=== PATIENT | male | born 1940 | race Caucasian/White ===

== ENCOUNTER → 2020-05-06 | Outpatient (CLI) | payer MEDICARE, BC ==
--- NOTE | 2020-05-06 14:57 | XR ---
EXAMINATION TYPE: XR chest 2V DATE OF EXAM: 05/06/2020 COMPARISON: NONE HISTORY: Prostate cancer, C 61 TECHNIQUE: Frontal and lateral views of the chest are obtained. FINDINGS: There is no focal air space opacity, pleural effusion, or pneumothorax seen. The cardiac silhouette size is within normal limits. The osseous structures are intact. The aorta is dense. IMPRESSION: No acute cardiopulmonary process.
--- NOTE | 2020-05-06 15:37 | CT ---
EXAMINATION TYPE: CT abdomen wo/w con DATE OF EXAM: 05/06/2020 COMPARISON: None HISTORY: Prostate Cancer, Renal Mass CT DLP: 1617 mGycm Automated exposure control for dose reduction was used. TECHNIQUE: Helical acquisition of images was performed from the lung bases through the top of iliac crest to include entire abdomen. CONTRAST: Performed with Oral Contrast and without and with IV Contrast, patient injected with 100 ml mL of Iso delmer 300. FINDINGS: LUNG BASES: No significant abnormality is appreciated. LIVER/GB: Punctate low dense focus on axial image 13 measures only 3 mm in size in the left lobe and is indeterminate, gallbladder is normal. PANCREAS: No significant abnormality is seen. SPLEEN: No significant abnormality is seen. ADRENALS: No significant abnormality is seen. KIDNEYS: Right kidney shows a low dense focus measuring 16 mm at the midpole, likely simple cyst. No evident renal calculi or hydronephrosis.. BOWEL: No significant abnormality is seen. LYMPH NODES: No significant abnormality is appreciated. OSSEOUS STRUCTURES: Striated appearance of the lumbar vertebral bodies suggests underlying hemangiom as, degenerative disc disease present in the lower lumbar spine with vacuum disc phenomenon at interv ertebral levels. There is a mild spinal curvature.. FREE AIR: No Free Air visible ASCITES: None visible. RETROPERITONEAL ADENOPATHY: No Retroperitoneal Adenopathy visible. OTHER: IMPRESSION: NONSPECIFIC FINDINGS DESCRIBED ABOVE. LOW DENSE FOCUS WITHIN THE LIVER STATISTICALLY IS LIKELY REPRES ENTS CYST, CONSIDER FOLLOW-UP
--- NOTE | 2020-05-06 16:22 | NM ---
EXAMINATION TYPE: NM bone scan whole body DATE OF EXAM: 05/06/2020 COMPARISON: CT same date HISTORY: Prostate cancer Delayed whole-body scanning was performed following the injection of 22.6 mCi Tc 99m MDP. Images acq uired 3 hours post injection. FINDINGS: Uptake in the lower lumbar spine likely due to degenerative change. Soft tissue uptake is normal. Upt rosy within the hands, elbows, shoulders, ankles, and sternoclavicular joints, knees is likely degener ative. Uptake in the cervical spine is likely degenerative. No abnormal increased or decreased uptake to suggest metastatic disease. IMPRESSION: Degenerative changes. Metastatic disease is not evident
== END | disposition home or self-care (01) ==
LOC: RADNMMAIN 10:23
PROVIDERS: ATTEND Urology
DX: M19.90 Unspecified osteoarthritis, unspecified site (principal); C61 Malignant neoplasm of prostate; K76.9 Liver disease, unspecified
CPT/HCPCS: 82565; 84520; 71046; 74170; 36415; 78306; A9503; Q9967

== ENCOUNTER → 2020-10-10 | Outpatient (CLI) | payer MEDICARE, BC ==
--- NOTE | 2020-10-10 12:21 | XR ---
EXAMINATION TYPE: XR chest 2V DATE OF EXAM: 10/10/2020 COMPARISON: 05/06/2020 HISTORY: Shortness of breath TECHNIQUE: Frontal and lateral views of the chest are obtained. FINDINGS: Scattered senescent parenchymal changes noted. Hyperinflation compatible with COPD. No evidence for infiltrate. No evidence for atelectasis. Heart size is stable. Mediastinal structures are stable and grossly unremarkable. No evidence for hilar prominence. Degenerative changes dorsal spine. IMPRESSION: 1. No evidence for acute pulmonary disease.
[2020-10-10 12:53] LABS: Basophils # (A) 0.1 k/uL (0-0.2); Basophils % (A) 1 %; Eosinophils # (A) 0.3 k/uL (0-0.7); Eosinophils % (A) 5 %; HCT 36.5 % (39.0-53.0); HGB 12.4 gm/dL (13.0-17.5); Lymphocytes % (A) 18 %; MCH 32.5 pg (25.0-35.0); MCV 95.7 fL (80.0-100.0); Monocytes # (A) 0.3 k/uL (0-1.0); Monocytes % (A) 5 %; Neutrophils # (A) 3.9 k/uL (1.3-7.7); Neutrophils % (A) 70 %; Platelet Count 234 k/uL (150-450); RBC 3.81 m/uL (4.30-5.90); RDW 13.4 % (11.5-15.5); WBC 5.6 k/uL (3.8-10.6)
[2020-10-10 13:08] LABS: Potassium 4.2 mmol/L (3.5-5.1)
[2020-10-10 13:09] LABS: Calcium 9.1 mg/dL (8.4-10.2)
[2020-10-10 13:26] LABS: Appearance,Urine Clear (Clear); Bilirubin,Urine Negative (Negative); Blood,Urine Negative (Negative); Color,Urine Yellow; Glucose,Urine (UA) Negative (Negative); Ketones,Urine Negative (Negative); Leukocyte Esterase,Urine Negative (Negative); Nitrite,Urine Negative (Negative); Protein,Urine Negative (Negative); Specific Gravity,Urine 1.021 (1.001-1.035); Urobilinogen,Urine <2.0 mg/dL (<2.0)
== END | disposition home or self-care (01) ==
LOC: LABPAT 11:09
PROVIDERS: ATTEND Urology
DX: Z01.818 Encounter for other preprocedural examination (principal); C61 Malignant neoplasm of prostate; I10 Essential (primary) hypertension; R35.0 Frequency of micturition; R05 Cough; R06.02 Shortness of breath
CPT/HCPCS: 36415; 71046; 80048; 81003; 85025; 86850; 86900; 86901

== ENCOUNTER 2020-10-16 07:06 | Day surgery (SDC) | payer MEDICARE, BC ==
[2020-10-10 14:49] VITALS: BMI 20.7
--- NOTE | 2020-10-15 17:19 | P.HPIHPCON ---
History of Present Illness H&P Date: 10/15/20 Chief Complaint: Prostate cancer This is an 79-year-old male with history of [place] 8 prostate cancer. Of note he also has significant BPH despite medical therapy. Discussed with him treatment option for his prostate cancer. Discussed with him surgery and radiation in detail. He agreed to proceed with a robotic prostatectomy. Discussed the risk of surgery which includes but not limited to bleeding, infection, injury to nearby organ, urinary incontinence, erectile dysfunction, cancer recurrence. Also discussed with him risk from anesthesia. Discussed with him given his age she is at high risk of urinary incontinence, medical complication from surgery. Discussed with him potential of blood clots, heart attack, strokes, and even . Discussed with him that most likely he will have benefit of his urinary symptoms, but he might still have persistent sym ptoms even after surgery. Discussed with him given his previous abdominal surgeries if there is significant adhesions then surgery may not be feasible. He understood all the risk and agreed to proceed with robotic-assisted prostatectomy and pelvic lymph node dissection Consent for Procedure: I have explained the operation/procedure to the patient, including the risks, b enefits, side effects, alternative therapies (including not receiving the proposed treatment or service), the likelihood of the patient achieving his/her goals, and potential recuperation problems for the procedure/sedation/analgesia, as well as any blood products, if indicated. I also explained to the patient the risks, benefits and side effects of the alternatives, as well as the risks related to not receiving the proposed procedure, care, treatment, or services. Past Medical History Past Medical History: Cancer, Hypertension Additional Past Medical History / Comment(s): prostate CA, carotid stenosis, HX HEART MURMUR-RHEUMATIC FEVER 194,. . 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 IRENE. ING. HERNIA,irene cataracts Past Anesthesia/Blood Transfusion Reactions: Postoperative Nausea & Vomiting (PONV) Additional Past Anesthesia/Blood Transfusion Reaction / Comment(s): PONV. no problems with blood transfusion 1948 Smoking Status: Never smoker - Past Family History Mother Family Medical History: Cancer Additional Family Medical History / Comment(s): brain tumor Brother(s) Family Medical History: Cancer Medications and Allergies Home Medications Medication Instructions Recorded Confirmed Type Atenolol 50 mg PO HS 12/25/13 10/10/20 History Doxazosin Mesylate 8 mg PO HS 12/25/13 10/10/20 History Omeprazole [PriLOSEC] 20 mg PO QAM 12/25/13 10/10/20 History Aspirin 81 mg PO DAILY 10/10/20 10/10/20 History Atorvastatin [Lipitor] 40 mg PO DAILY 10/10/20 10/10/20 History Vit C/E/Zn/Coppr/Lutein/Zeaxan 1 each PO BID 10/10/20 10/10/20 History [Preservision Areds 2 Softgel] diphenhydrAMINE HCL [Benadryl] 25 mg PO BID 10/10/20 10/10/20 History Allergies Allergy/AdvReac Type Severity Reaction Status Date / Time No Known Allergies Allergy Verified 10/10/20 14:34 Surgical - Exam - General well developed, well nourished, no distress, no pain - Eyes PERRL, normal ocular movement - Respiratory normal expansion, normal respiratory effort Assessment and Plan Assessment: 79 year-old male with history of prostate cancer OR for Robotic prostatectomy and pelvic lymph node dissection
[~2020-10-16 07:06] MED LIST: HEPARIN SODIUM,PORCINE/PF 5,000 UNIT/0.5 ML SYRINGE SQ PRN; ONDANSETRON 4 MG/2 ML VIAL IVP ONE
[2020-10-16] MEDS ORDERED: LACTATED RINGERS 1,000 ML IV ONE ×6 (07:50→15:50)
[2020-10-16] MEDS ORDERED: LIDOCAINE 1% (10MG/ML) FOR IV START INTRADERMA ONE ×2 (08:00→08:14)
[2020-10-16] MEDS ORDERED: LIDOCAINE 1% INJ 10MG/ML (20 ML MDV) ONE (08:09)
[2020-10-16] MEDS ORDERED: ONDANSETRON 4 MG/2 ML VIAL IVP ONE (08:15)
[2020-10-16] MEDS: LACTATED RINGERS 1,000 ML IV SCH (08:17)
[2020-10-16] MEDS ORDERED: MIDAZOLAM 2 MG/2 ML VIAL IVP ONE (08:43)
[2020-10-16] MEDS ORDERED: ONDANSETRON 4 MG/2 ML VIAL IVP PRN (10:44)
[2020-10-16] MEDS ORDERED: HYDROcodone/APAP 5-325MG 1 EACH TAB PO PRN (10:44)
[2020-10-16] MEDS ORDERED: PHENYLEPHRINE-0.9% NACL SYG 1,000 MCG/10 ML SYRINGE ONE (11:14)
[2020-10-16] MEDS ORDERED: GLYCOPYRROLATE 0.2 MG/ML 2 ML VIAL ONE (11:14)
[2020-10-16] MEDS ORDERED: ROPIVACAINE 5 MG/ML 30 ML VIAL ONE (11:14)
[2020-10-16] MEDS ORDERED: SUCCINYLCHOLINE CHLORIDE 100 MG/5 ML SYR IV ONE (11:14)
[2020-10-16] MEDS ORDERED: ONDANSETRON 4 MG/2 ML VIAL ONE (11:14)
[2020-10-16] MEDS ORDERED: BUPIVACAIN-EPI 0.5%-1:200,000 30 ML VIAL SQ ONE (11:14)
[2020-10-16] MEDS ORDERED: MIDAZOLAM 2 MG/2 ML VIAL ONE (11:14)
[2020-10-16] MEDS ORDERED: fentaNYL (PF) 50 MCG/ML 2 ML AMP ONE (11:14)
[2020-10-16] MEDS ORDERED: PROPOFOL 10 MG/ML 20 ML VIAL IV ONE (11:14)
[2020-10-16] MEDS ORDERED: NEOSTIGMINE 1 MG/ML 10 ML VIAL ONE (11:14)
[2020-10-16] MEDS ORDERED: LIDOCAINE 1%-EPI 1:100,000 20 ML VIAL ONE (11:14)
[2020-10-16] MEDS ORDERED: ROCURONIUM 10 MG/ML (5 ML VIAL) IV ONE (11:14)
[2020-10-16] MEDS ORDERED: ePHEDrine SULFATE/0.9% NACL/PF 50 MG/5 ML SYRINGE IV ONE (11:14)
[2020-10-16] MEDS: HYDROmorphone 0.5 MG/0.5 ML SYRINGE IVP PRN ×4 (16:14→16:35)
[2020-10-16] MEDS ORDERED: KETOROLAC 15 MG/ML 1 ML VIAL IVP ONE (16:46)
[2020-10-16] MEDS ORDERED: HYDROmorphone 0.5 MG/0.5 ML SYRINGE IVP ONE ×2 (16:51→16:56)
[2020-10-16] MEDS: HEPARIN SODIUM,PORCINE/PF 5,000 UNIT/0.5 ML SYRINGE SQ SCH (18:12)
[2020-10-16] MEDS: D5-0.45% NACL WITH KCL 20MEQ/L 1,000 ML IV SCH (18:12)
--- NOTE | 2020-10-16 20:32 | P.ANPRN ---
Procedure Note - Anesthesia - Nerve Block Performed Bilateral Erector Spinae Single Time Out Performed: Yes Date of Procedure: 10/16/20 Procedure Start Time: 08:42 Procedure Stop Time: :52 Location of Patient: PreOp Indication: Acute Post-Operative Pain, Requested by Surgeon Sedation Type: Sedate with meaningful contact maintained Preparation: Sterile Prep Position: Prone Needle Types: Pajunk Needle Gauge: 21 Ultrasound used to visualize needle placement: Yes Ultrasound used to observe medication spread: Yes Blood Aspirated: No Pain Paresthesia on Injection Noted: No Resistance on Injection: Normal Image Stored and Saved: Yes Events: Uneventful and Well Tolerated (ropi .5% 15cc plus xylo 1% with epi 15cc bilaterally at l3)
[2020-10-16] MEDS ORDERED: atenoloL 50 MG TAB PO SCH (21:00)
--- NOTE | 2020-10-16 21:21 | P.OP ---
Date of Procedure: 10/16/20 Preoperative Diagnosis: Prostate cancer Postoperative Diagnosis: Same Procedure(s) Performed: Robotic-assisted laparoscopic radical prostatectomy, pelvic lymph node dissection Implants: none Anesthesia: GENI Surgeon: Robbie Khan Network Design Architect #1: Rosario Wong Estimated Blood Loss (ml): 100 Pathology: other (Prostate, bilateral seminal vesicles, bilateral pelvic lymph nodes) Condition: stable Disposition: PACU Indications for Procedure: This is an 79-year-old male with history of [place] 8 prostate cancer. Of note he also has significant BPH despite medical therapy. Discussed with him treatment option for his prostate cancer. Discussed with him surgery and radiation in detail. He agreed to proceed with a robotic prostatectomy. Discussed the risk of surgery which includes but not limited to bleeding, infection, injury to nearby organ, urinary incontinence, erectile dysfunction, cancer recurrence. Also discussed with him risk from anesthesia. Discussed with him given his age she is at high risk of urinary incontinence, medical complication from surgery. Discussed with him potential of blood clots, heart attack, strokes, and even . Discussed with him that most likely he will have benefit of his urinary symptoms, but he might still have persistent symptoms even after surgery. Discussed with him given his previous abdominal surgeries if there is significant adhesions then surgery may not be feasible. He understood all the risk and agreed to proceed with robotic-assisted prostatectomy and pelvic lymph node dissection Description of Procedure: After preoperative antibiotics were started, the patient was taken to the operating room. Anesthesia was induced and the patient was placed in supine position, with adequate padding of the pressure points, shoulders, back, legs and arms. He was then prepped and draped in the standard fashion. A critical pause was performed using two patient identifiers. A 16F blancas catheter was placed to gravity drainage. A pneumo-peritoneum was created with placement of a Veress needle to 20 mm Hg without complication, and a 8 Fr trocar was placed above the umbillicus. Under direct vision a 8mm robotic ports was placed lateral to each rectus slightly below the camera port. The left iliac fossa 8mm port was placed. The right office clerk assistant right iliac fossa 12mm port and right paramedian 5mm port were placed. After the patient was placed in the trendelenberg position, the robot was then docked to the 8mm robotic ports and then each robotic arm and tower was checked in relation to the patient's legs and hands to avoid inadvertent compression. The peritoneal cavity was inspected. adhesion taken down along the LLQ An inverted U-shaped incision began laterally to the left medial umbilical ligament and extended high across the midline to the right umbilical ligament. The limbs of the "U" extended to the level of the vasa on both sides. We next developed the preperitoneal space and the space of Retzius. of note patient had mesh along the right side, the incision was made medial to the mesh Cautery was used to dissected the bladder away from the prostate. Of note patient had thickened bladder wall After the anterior bladder neck was incised and the bladder entered the the posterior bladder neck was exposed and the ureteral orifces identified. The posterior bladder neck was then incised and dissected away from the prostate. The vas and the seminal vesicles were now exposed and dissected to their insertions into the prostate and were not spared. The left seminal vesicle was adherent. The posterior layer of the Denonvillier's fascia was incised to enter elizabeth the plane between prostate and perirectal fat. Each lateral pedicle was controlled with clips and cautery for hemostasis. No nerve sparing was performed. The puboprostatic ligament was incised where it inserted into the apex of the prostate and a plane between urethra and dorsal venous complex developed to expose the anterior urethral surface. The anterior wall of the urethra was transected with the cut setting a few millimeters distal to the apex of the prostate. The dorsal vein was ligated using 3-0 V lock bilateral obturator and external iliac lymph node packets were carefully dissected after careful visualization of the hypogastric artery and obturator nerve. There was careful attention paid to hemostasis with judicious use of cautery. The urethrovesical anastomosis was performed . the posterior denovillers was reapproximated using 3-0 V lock. A 6 and 6 inch 3-0 V-Lock suture was used to anastomose the urethra and bladder, starting at the 6:00 posterior position. Mucosa was secured in every stitch, to ensure a mucosa to mucosa anastomosis. The stitch was regularly cinched and the anastomosis tightened. Care was taken to not violate the ureteral orifices. The Lbancas catheter was advanced, the bladder filled, and the anastomosis was tested, as described above. Anastomsis was watertight at 150 mL The periumbilical fascia was closed with 1-0-PDS suture in figure of 8 fashion. All ports were closed with a subcuticular 4-0 monocryl and Dermabond. Sponge, instrument, and needle counts were correct at the end of the case x2. All specimens including prostate and lymph nodes were sent to pathology for diagnosis and will be available in a week. The patient tolerated the surgery well and without complication. He awoke without difficulty and was taken to the recovery room in stable condition
[2020-10-17] MEDS: HEPARIN SODIUM,PORCINE/PF 5,000 UNIT/0.5 ML SYRINGE SQ SCH ×2 (00:07→08:15)
[2020-10-17] MEDS: KETOROLAC 15 MG/ML 1 ML VIAL IVP SCH ×3 (00:08→12:47)
[2020-10-17] MEDS: D5-0.45% NACL WITH KCL 20MEQ/L 1,000 ML IV SCH ×2 (02:15→10:17)
[2020-10-17] MEDS: LACTATED RINGERS 1,000 ML IV SCH (05:24)
[2020-10-17 07:50] VITALS: BP 123/64; RESP 15; TEMP 98.2
[2020-10-17] MEDS ORDERED: ATORVASTATIN 40 MG TAB PO SCH (09:00)
[2020-10-17 10:57] VITALS: PULSE 62
--- NOTE | 2020-10-17 12:24 | P.CONS ---
History of Present Illness - Reason for Consult Consult date: 10/17/20 Medical management - History of Present Illness HISTORY OF PRESENT ILLNESS This is an 79-year-old male patient of Dr. Ordaz with past medical history of [place] 8 prostate cancer, benign prostatic hypertrophy, hypertension, hyperlipidemia, gastroesophageal reflux disease, carotid stenosis, skin cancer. Patient was seen at [facility] for possible options for prostate cancer. He declined radiation therapy and requested to undergo surgical intervention. Patient has been brought in under the care of Dr. Khan and yesterday underwent robotic-assisted laparoscopic radical prostatectomy, pelvic lymph node dissection. Patient has Wallis catheter in place. He states his pain is controlled. He does have some abdominal bloating. Patient has been afebrile, hemodynamically stable. He is anticipating discharge home later today. REVIEW OF SYSTEMS Constitutional: No fever, no chills, no night sweats. No weight change. No weakness, fatigue or lethargy. No daytime sleepiness. EENT: No headache. No blurred vision or double vision, no loss of vision. No loss of Hearing, no ringing in the ears, no dizziness. No nasal drainage or congestion. No epistaxis. No sore throat. Lungs: No shortness of breath, cough, no sputum production. No wheezing. Cardiovascular: No chest pain, no lower extremity edema. No palpitations. No paroxysmal nocturnal dyspnea. No orthopnea. No lightheadedness or dizziness. No syncopal episodes. Abdominal: No abdominal pain. No nausea, vomiting. No diarrhea. No constipation. No bloody or tarry stools.. No loss of appetite. Genitourinary: No dysuria, increased frequency, urgency. Wallis catheter. Musculoskeletal: No myalgias. No muscle weakness, no gait dysfunction, no frequent falls. No back pain. No neck pain. Integumentary: No wounds, no lesions. No rash or pruritus. No unusual bruising. No change in hair or nails. Neurologic: No aphasia. No facial droop. No change in mentation. No head injury. No headache. No paralysis. No paresthesia. Psychiatric: No depression. No anxiety. No mood swings. Endocrine: No abnormal blood sugars. No weight change. No excessive sweating or thirst. No cold intolerance. SOCIAL HISTORY Patient is a lifelong nonsmoker. He denies any marijuana use, illicit drug use, no alcohol abuse. 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 He lives at home with his . FAMILY HISTORY Mother at age 53 from brain tumor. Father at age 59 from suicide. Patient has one brother and he has passed from renal cell cancer and renal failure. Patient had one sister that from premature . Patient has 4 children and one son at 32 from suicide. One daughter has depression. PHYSICAL EXAMINATION Gen: This is an 79-year-old male patient. He is resting in bed appears to be comfortable and in no acute distress. HEENT: Head is atraumatic, normocephalic. Pupils equal, round. Sclerae is anicteric. NECK: Supple. No JVD. No lymphadenopathy. No thyromegaly. LUNGS: Clear to auscultation. No wheezes or rhonchi. No intercostal retractions. HEART: Regular rate and rhythm. Systolic murmur. ABDOMEN: Soft. Slight abdominal distention. Bowel sounds are present. No masses. No tenderness. Wallis catheter in place. EXTREMITIES: No pedal edema. No calf tenderness. NEUROLOGICAL: Patient is awake, alert and oriented x3. Cranial nerves 2 through 12 are grossly intact. ASSESSMENT AND PLAN 1. [place] 8 prostate cancer status post robotic-assisted laparoscopic radical prostatectomy, pelvic lymph node dissection. Continue Wallis catheter and pain management per urology. Patient to continue Doxazosin 8 mg at bedtime. 2. Hypertension. Continue atenolol 50 mg at bedtime. 3. Hyperlipidemia. Continue Lipitor 40 mg daily. 4. Gastroesophageal reflux disease. Continue omeprazole 20 mg daily. 5. History of carotid stenosis, stable. 6. History of skin cancer, stable. 7. Benign prostatic hypertrophy. 8. COVID-19 testing negative. Patient has been hospitalized during a pandemic. DISCHARGE PLAN home Impression and plan of care have been directed as dictated by the signing physician. Frances Colin nurse practitioner acting as scribe for signing physician. Past Medical History Past Medical History: Cancer, Hypertension Additional Past Medical History / Comment(s): prostate CA, carotid stenosis, HX HEART MURMUR-RHEUMATIC FEVER 1949,. . 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 IRENE. ING. HERNIA,irene cataracts Past Anesthesia/Blood Transfusion Reactions: Postoperative Nausea & Vomiting (PONV) Additional Past Anesthesia/Blood Transfusion Reaction / Comm: PONV. no problems with blood transfusion 1948 Past Psychological History: No Psychological Hx Reported Smoking Status: Never smoker Past Alcohol Use History: None Reported Past Drug Use History: None Reported - Past Family History Mother Family Medical History: Cancer Additional Family Medical History / Comment(s): brain tumor Brother(s) Family Medical History: Cancer Medications and Allergies Home Medications Medication Instructions Recorded Confirmed Type Atenolol 50 mg PO HS 12/25/13 10/16/20 History Doxazosin Mesylate 8 mg PO HS 12/25/13 10/16/20 History Omeprazole [PriLOSEC] 20 mg PO QAM 12/25/13 10/16/20 History Aspirin 81 mg PO DAILY 10/10/20 10/16/20 History Atorvastatin [Lipitor] 40 mg PO DAILY 10/10/20 10/16/20 History Vit C/E/Zn/Coppr/Lutein/Zeaxan 1 each PO BID 10/10/20 10/16/20 History [Preservision Areds 2 Softgel] diphenhydrAMINE HCL [Benadryl] 25 mg PO BID 10/10/20 10/16/20 History Allergies Allergy/AdvReac Type Severity Reaction Status Date / Time No Known Allergies Allergy Verified 10/16/20 08:19 Physical Exam Vitals: Vital Signs Temp Pulse Pulse Resp BP Pulse Ox 10/17/20 08:27 60 15 10/17/20 07:47 98.2 F 60 15 123/64 97 10/17/20 04:27 98.3 F 58 L 14 126/70 98 10/16/20 21:22 60 20 148/80 98 10/16/20 20:10 98.3 F 53 L 18 126/60 98 10/16/20 20:00 67 14 127/75 97 10/16/20 17:14 62 16 111/58 98 10/16/20 17:00 58 L 14 115/61 97 10/16/20 16:44 72 16 118/51 95 10/16/20 16:29 81 16 125/65 94 L 10/16/20 16:14 96 18 114/55 97 10/16/20 16:03 98.0 F 90 18 135/58 99 Intake and Output 10/16/20 10/17/20 10/17/20 22:59 06:59 14:59 Intake Total 775 1979 Balance 775 1979 Intake: IV 700 Intake, IV Titration 75 1500 Amount D5-0.45% NaCl with KCl 1500 20Meq/l 1,000 ml @ 125 mls/hr IV .Q8H BERNADETTE Rx#: [id number] Lactated Ringers 1,000 ml 75 @ 20 mls/hr IV .Q24H BERNADETTE Rx#:[id number] Oral 480 Other: Voiding Method Indwelling Catheter Indwelling Catheter Weight 59.5 kg
--- NOTE | 2020-10-17 16:53 | P.DS ---
Providers Attending physician: Robbie Khan MD Primary care physician: [facility] Course: This is an 79-year-old male with history of prostate cancer. He underwent a robotic-assisted upper laproscopic radical prostatectomy on October 16, please see op note dated October 16 for full surgery details. He was admitted to the floor postoperatively, he did well in the postoperative period. He was discharged home on postoperative day #1 with the Wallis catheter. At time of discharge she was tolerating a diet, ambulating, pain was well-controlled Plan - Discharge Summary Discharge Rx Participant: No New Discharge Prescriptions: New traMADol HCl [Ultram] 50 mg PO Q6HR PRN 3 Days #6 tab PRN Reason: Pain Ibuprofen 600 mg PO Q8H PRN #20 tab PRN Reason: Pain Cephalexin [Keflex] 500 mg PO Q8HR #9 cap No Action Omeprazole [PriLOSEC] 20 mg PO QAM Doxazosin Mesylate 8 mg PO HS Atenolol 50 mg PO HS diphenhydrAMINE HCL [Benadryl] 25 mg PO BID Aspirin 81 mg PO DAILY Atorvastatin [Lipitor] 40 mg PO DAILY Vit C/E/Zn/Coppr/Lutein/Zeaxan [Preservision Areds 2 Softgel] 1 each PO BID Discharge Medication List Atenolol 50 mg PO HS 12/25/13 [History] Doxazosin Mesylate 8 mg PO HS 12/25/13 [History] Omeprazole [PriLOSEC] 20 mg PO QAM 12/25/13 [History] Aspirin 81 mg PO DAILY 10/10/20 [History] Atorvastatin [Lipitor] 40 mg PO DAILY 10/10/20 [History] Vit C/E/Zn/Coppr/Lutein/Zeaxan [Preservision Areds 2 Softgel] 1 each PO BID 10/10/20 [History] diphenhydrAMINE HCL [Benadryl] 25 mg PO BID 10/10/20 [History] Cephalexin [Keflex] 500 mg PO Q8HR #9 cap 10/17/20 [Rx] Ibuprofen 600 mg PO Q8H PRN #20 tab 10/17/20 [Rx] traMADol HCl [Ultram] 50 mg PO Q6HR PRN 3 Days #6 tab 10/17/20 [Rx] Follow up Appointment(s)/Referral(s): Praveen Odraz MD [Primary Care Provider] - 1 Week ( office is closed today.patient will have to schedule own appt) Activity/Diet/Wound Care/Special Instructions: No heavy lifting or straining for 4 weeks Increase fluid intake, it;s normal to see blood in the urine You may shower in 24 hours, no baths Discharge Disposition: HOME SELF-CARE
== END 2020-10-17 15:30 | disposition home or self-care (01) ==
LOC: OR 07:06 → 5NMEDONC 15:35 → OR 10-17 15:30
PROVIDERS: ATTEND Urology
DX: C77.5 Secondary and unspecified malignant neoplasm of intrapelvic lymph nodes (principal); C61 Malignant neoplasm of prostate; N40.0 Benign prostatic hyperplasia without lower urinary tract symptoms; I10 Essential (primary) hypertension; I65.29 Occlusion and stenosis of unspecified carotid artery; E78.5 Hyperlipidemia, unspecified; E11.9 Type 2 diabetes mellitus without complications; M19.90 Unspecified osteoarthritis, unspecified site; E78.00 Pure hypercholesterolemia, unspecified; K21.9 Gastro-esophageal reflux disease without esophagitis; Z98.890 Other specified postprocedural states; Z81.8 Family history of other mental and behavioral disorders; Z80.8 Family history of malignant neoplasm of other organs or systems; Z85.828 Personal history of other malignant neoplasm of skin; R01.1 Cardiac murmur, unspecified; Z90.89 Acquired absence of other organs; Z98.42 Cataract extraction status, left eye; Z98.41 Cataract extraction status, right eye; Z79.82 Long term (current) use of aspirin; Z79.899 Other long term (current) drug therapy; Z79.891 Long term (current) use of opiate analgesic
CPT/HCPCS: 38571; 55866; S2900; 64999; 76942; 86850; 86900; 86901; 87635; 88307; 88309

== ENCOUNTER 2021-11-23 15:10 | Outpatient (CLI) | payer MEDICARE, BC | END 2021-11-23 16:48 | disposition home or self-care (01) | LOC: LABWHC1 15:10 | PROVIDERS: ATTEND Urology | DX: Z53.9 Procedure and treatment not carried out, unspecified reason (principal) ==

== ENCOUNTER 2022-07-15 11:46 | Emergency (ER) | payer MEDICARE, BC ==
[2022-07-15] MEDS ORDERED: SODIUM CHLORIDE 0.9% 500 ML 500 ML IV STA (11:50)
[2022-07-15] MEDS ORDERED: MORPHINE SULFATE 4 MG/ML SYRINGE IVP STA (11:55)
[2022-07-15] MEDS ORDERED: AMIODARONE 50 MG/ML 3 ML VIAL IV ONE (12:00)
[2022-07-15] MEDS ORDERED: DEXTROSE 5% IN WATER 50 ML BAG ONE (12:00)
[2022-07-15] MEDS ORDERED: EPINEPHrine 10 ML SYRINGE (0.1 MG/ML) ONE (12:00)
[2022-07-15] MEDS ORDERED: SODIUM BICARB 8.4% 50 ML SYR (1 MEQ/ML) ONE (12:00)
[2022-07-15] MEDS ORDERED: LIDOCAINE 2% SYG (PF) 100 MG/5 ML ONE (12:00)
[2022-07-15] MEDS ORDERED: ATROPINE SULFATE 0.1 MG/ML 10ML SYRINGE ONE (12:00)
[2022-07-15 12:01] LABS: Basophils # (A) 0.1 k/uL (0-0.2); Basophils % (A) 1 %; Eosinophils # (A) 0.3 k/uL (0-0.7); Eosinophils % (A) 2 %; HCT 43.3 % (39.0-53.0); HGB 14.4 gm/dL (13.0-17.5); Lymphocytes # (A) 1.4 k/uL (1.0-4.8); Lymphocytes % (A) 11 %; MCH 30.8 pg (25.0-35.0); MCHC 33.2 g/dL (31.0-37.0); MCV 92.9 fL (80.0-100.0); Mean Platelet Volume 7.4; Monocytes # (A) 0.5 k/uL (0-1.0); Monocytes % (A) 4 %; Neutrophils # (A) 9.9 k/uL (1.3-7.7); Neutrophils % (A) 81 %; Platelet Count 236 k/uL (150-450); RBC 4.66 m/uL (4.30-5.90); RDW 13.3 % (11.5-15.5); WBC 12.3 k/uL (3.8-10.6)
--- NOTE | 2022-07-15 12:04 | XR ---
EXAMINATION TYPE: XR chest 1V portable DATE OF EXAM: 07/15/2022 HISTORY: Shortness of breath. COMPARISON: 10/10/2020 TECHNIQUE: Single view of the chest is submitted. FINDINGS: Demonstrated are scattered senescent parenchymal change. Airspace infiltrates seen in the left upper lobe greater than right upper lobe. Correlate for pneumon ia. The heart is stable. Hilar and mediastinal structures are within normal limits. Degenerative changes are seen of the dorsal spine. IMPRESSION: 1. Airspace infiltrates seen in the left upper lobe greater than right upper lobe. Correlate for pne umonia.
[2022-07-15] MEDS ORDERED: ROCURONIUM 10 MG/ML (5 ML VIAL) IV STA (12:05)
[2022-07-15 12:24] LABS: Calcium 8.9 mg/dL (8.4-10.2); Potassium 3.5 mmol/L (3.5-5.1); Total Protein 6.8 g/dL (6.3-8.2)
[2022-07-15 12:35] LABS: INR 1.2 (<1.2); Partial Thromboplastin Time 23.3 sec (22.0-30.0); Prothrombin Time 12.3 sec (9.0-12.0)
--- NOTE | 2022-07-15 12:37 | ED ---
Chest Pain HPI - General Stated Complaint: Stemi Time Seen by Provider: 07/15/22 11:46 - History of Present Illness Initial Comments: 81-year-old male presents to the emergency departments after he had a syncopal episode at [facility]. I did obtain history from EMS. They state that the patient was walking around in [facility] when he suddenly collapsed and hit his head. Bystanders started CPR. Patient did push them off as he did regain consciousness. Unknown if the patient fully lost a pulse. He arrives to the hospital reporting chest pain which seems consistent with musculoskeletal pain. He denies any headaches or visual changes. He is in a c-collar. He denies feeling ill prior to the episode. He has no cardiac history. No recent illnesses. No fevers, chills or cough. EKG prehospital demonstrated STEMI and therefore [facility] was activated as patient arrived to the hospital. - Related Data Home Medications Medication Instructions Recorded Confirmed Atenolol 50 mg PO HS 12/25/13 10/16/20 Doxazosin Mesylate 8 mg PO HS 12/25/13 10/16/20 Omeprazole [PriLOSEC] 20 mg PO QAM 12/25/13 10/16/20 Aspirin 81 mg PO DAILY 10/10/20 10/16/20 Atorvastatin [Lipitor] 40 mg PO DAILY 10/10/20 10/16/20 Vit C/E/Zn/Coppr/Lutein/Zeaxan 1 each PO BID 10/10/20 10/16/20 [Preservision Areds 2 Softgel] diphenhydrAMINE HCL [Benadryl] 25 mg PO BID 10/10/20 10/16/20 Previous Rx's Medication Instructions Recorded Cephalexin [Keflex] 500 mg PO Q8HR #9 cap 10/17/20 Ibuprofen 600 mg PO Q8H PRN #20 tab 10/17/20 traMADol HCl [Ultram] 50 mg PO Q6HR PRN 3 Days #6 tab 10/17/20 Allergies Allergy/AdvReac Type Severity Reaction Status Date / Time No Known Allergies Allergy Verified 07/15/22 11:49 Review of Systems ROS Statement: Those systems with pertinent positive or pertinent negative responses have been documented in the HPI. ROS Other: All systems not noted in ROS Statement are negative. EKG Findings - EKG Comments: EKG Findings:: EKG demonstrates sinus rhythm with ST elevation 2, 3, aVF. Reciprocal depression in V2 through V6. Inferior wall MO with posterior extension. Rate of 68. MA interval 164. QRS 92. QTC of 440. Past Medical History Past Medical History: Cancer, Hypertension Additional Past Medical History / Comment(s): HX HEART MURMUR-RHEUMATIC FEVER 1949. HX. 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 IRENE. ING. HERNIA- LEFT IN 1983 &RT IN 2003 Past Anesthesia/Blood Transfusion Reactions: Postoperative Nausea & Vomiting (PONV) Additional Past Anesthesia/Blood Transfusion Reaction / Comment(s): PONV AFTER EYE SURGERY@ AGE 17 Past Psychological History: No Psychological Hx Reported Smoking Status: Never smoker Past Alcohol Use History: None Reported Past Drug Use History: None Reported - Past Family History Mother Family Medical History: Cancer Additional Family Medical History / Comment(s): brain tumor Brother(s) Family Medical History: Cancer General Exam General appearance: alert, in no apparent distress Head exam: Present: atraumatic, normocephalic, normal inspection Eye exam: Present: normal appearance, PERRL, EOMI. Absent: scleral icterus, conjunctival injection, periorbital swelling ENT exam: Present: normal exam, mucous membranes moist Neck exam: Present: normal inspection. Absent: tenderness, meningismus, lymphadenopathy Respiratory exam: Present: normal lung sounds bilaterally, chest wall tenderness. Absent: respiratory distress, wheezes, rales, rhonchi, stridor Cardiovascular Exam: Present: regular rate, normal rhythm, normal heart sounds. Absent: systolic murmur, diastolic murmur, rubs, gallop, clicks GI/Abdominal exam: Present: soft, normal bowel sounds. Absent: distended, tenderness, guarding, rebound, rigid Extremities exam: Present: normal inspection, full ROM, normal capillary refill. Absent: tenderness, pedal edema, joint swelling, calf tenderness Back exam: Present: normal inspection Neurological exam: Present: alert, oriented X3, CN II-XII intact Psychiatric exam: Present: normal affect, normal mood Skin exam: Present: warm, dry, intact, normal color. Absent: rash Course Vital Signs 07/15/22 07/15/22 07/15/22 11:49 11:55 15:10 Temperature 97.1 F L 97.2 F L Pulse Rate 81 78 0 L Respiratory 16 14 Rate Blood Pressure 172/104 122/84 O2 Sat by Pulse 95 88 L Oximetry - Reevaluation(s) Reevaluation #1: Spoke with Dr. Camilo. Noted that we needed a CT of the head and neck before the patient goes to [facility] 07/15/22 11:52 Reevaluation #2: Patient arrested - CPR started 07/15/22 12:00 Reevaluation #3: Patient's family wishes to cease efforts at this time 07/15/22 12:26 Reevaluation #4: 07/15/22 12:44 ME notified Procedures - Intubation Paralytic: Rocuronium Mg Given: 50 Laryngoscope: fiber optic video scope Size: 3 ET Tube Size: 7.5 ET Tube Uncuffed: No Tube Secured Depth (cm): 23 Tube Secured Location: teeth Tube Placement Confirmation: visualized tube passing through cords, equal breath sounds bilaterally, no breath sounds over epigastrium, confirmation by capnometry Patient Tolerated Procedure: well, no complications Intubation Complications: none Chest Pain MDM - MDM Was pt. sent in by a medical professional or institution ([facility], [facility], urgent care, hospital, or penitentiary...) When possible be specific @ -[No] Did you speak to anyone other than the patient for history (EMS, parent, family, police, friend...)? What history was obtained from this source EMS. Did you review nursing and triage notes (agree or disagree)? Why? @ -[I reviewed and agree with nursing and triage notes] Were old charts reviewed (outside hosp., previous admission, EMS record, old EKG, old radiological studies, urgent care reports/EKG's, penitentiary records)? Report findings @ -[No old charts were reviewed] Differential Diagnosis (chest pain, altered mental status, abdominal pain women, abdominal pain men, vaginal bleeding, weakness, fever, dyspnea, syncope, headache, dizziness, GI bleed, back pain, seizure, CVA, palpatations, mental health)? CVA, concussion, MO, pe, dissection, aortic anerysm EKG interpreted by me (3pts min.). yes X-rays interpreted by me (1pt min.). yes CT interpreted by me (1pt min.). @ -[None done] U/S interpreted by me (1pt. min.). @ -[None done] What testing was considered but not performed or refused? (CT, X-rays, U/S, labs)? Why? ct however pt arrested before going to CT What meds were considered but not given or refused? Why? @ -[None] Did you discuss the management of the patient with other professionals (professionals i.e. , PA, [facility], lab, RT, psych nurse, social sciences instructor, blade groover, teacher, chief sales officer, gearcase assembler)? Give summary Dr. rojas Was smoking cessation discussed for >3mins.? @ -[No] Was critical care preformed (if so, how long)? yes, 48 minutes Were there social determinants of health that impacted care today? How? (Homelessness, low income, unemployed, alcoholism, drug addiction, transportation, low edu. Level, literacy, decrease access to med. care, [place] [facility], rehab)? @ -[No] Was there de-escalation of care discussed even if they declined (Discuss DNR or withdrawal of care, Hospice)? DNR status yes - DNR. Patient's daughter wishes that we cease efforts as he never wanted to be intubated What co-morbidities impacted this encounter? (DM, HTN, Smoking, COPD, CAD, Cancer, CVA, ARF, Chemo, Hep., AIDS, mental health diagnosis, sleep apnea, morbid obesity)? htn Was patient admitted / discharged? Hospital course, mention meds given and route, prescriptions, significant lab abnormalities, going to OR and other pertinent info. On arrival patient was placed into trauma 3. A thorough history and physical exam was performed. IV access was established. X-ray studies were obtained. Chest x-ray was performed. Patient did need CT of his brain before going to the [facility]. He did receive a dose of morphine for pain control. Patient then bradyed down and arrest. He is intubated. CPR is started at 12:00. He received multiple rounds of epinephrine, amiodarone, lidocaine. He has rhythm checks a demonstrate PDA and V. fib. Patient is different related 3 times. CPR is continued for 26 minutes. At this time I did speak to family. Daughter wishes to cease efforts at this time. States the patient was a DO NOT RESUSCITATE DO NOT INTUBATE. Time of is called called at 11:26 AM. I do speak with the medical aides teacher and with Dr. Ordaz. Case number is [id number]. Please see code sheet for further info Undiagnosed new problem with uncertain prognosis? @ -[No] Drug Therapy requiring intensive monitoring for toxicity (Heparin, Nitro, Insulin, Cardizem)? amio, lidocaine, epinephrine Were any procedures done? intubation Diagnosis/symptom? cardiac arrest, stemi Acute, or Chronic, or Acute on Chronic? acute Uncomplicated (without systemic symptoms) or Complicated (systemic symptoms)? complicated Side effects of treatment? @ -[No] Exacerbation, Progression, or Severe Exacerbation? @ -[No] Poses a threat to life or bodily function? How? (Chest pain, [place], MO, pneumonia, PE, COPD, DKA, ARF, appy, cholecystitis, CVA, Diverticulitis, Homicidal, Suicidal, threat to staff... and all critical care pts) yes Critical Care Time Critical Care Time: Yes Critical Care Time: 48 minutes Disposition Clinical Impression: STEMI (ST elevation myocardial infarction), Cardiac arrest Disposition: Is patient prescribed a controlled substance at d/c from ED?: No Referrals: Praveen Ordaz MD [Primary Care Provider] - 1-2 days Preliminary Cause of : cardiac arrest, inferior wall mi
[2022-07-15 18:17] VITALS: BP 122/84; RESP 14; TEMP 97.2
[2022-07-15 18:29] VITALS: PULSE 0
== END 2022-07-15 15:22 | disposition expired ==
LOC: EC 11:46
DX: I21.3 ST elevation (STEMI) myocardial infarction of unspecified site (principal); I46.9 Cardiac arrest, cause unspecified; I10 Essential (primary) hypertension; Z79.82 Long term (current) use of aspirin; Z79.899 Other long term (current) drug therapy
CPT/HCPCS: 36415; 93005; 80053; 84484; 85025; 85610; 85730; 71045; 99291; 96374; 96375; 31500; J2270